=== PATIENT | female | born 1960 | race Caucasian/White ===

== ENCOUNTER 2018-10-28 16:51 | Emergency (ER) | payer SELFPAY ==
[~2018-10-28] VITALS: Wt 75.0 kg
--- NOTE | 2018-10-28 17:28 | ERD ---
ER Documentation Chief Complaint Chief Complaint R side abscess/lesion of forehead x 1 year HPI 58-year-old female patient with a history of panic attacks presents the ED complaining of a lesion on the right side of her forehead. Patient is afebrile and nontoxic-appearing. She reports that the lesion has been on her forehead for the last year, however today she presents to the ED due to it having purulent discharge. Denies any fever, chills, nausea, vomiting, diarrhea. Patient reports that she has had some swelling noted surrounding the skin lesion. Reports that she is never followed up with a production ski repairer. Denies any neck stiffness, vision problems. ROS All systems reviewed and are negative except as per history of present illness. Medications Home Meds Active Scripts Cephalexin* (Keflex*) 500 Mg Capsule, 500 MG PO QID for 7 Days, CAP Prov:HANSEL ALMARAZ PA-C 10/28/18 Sulfamethoxazole/Trimethoprim* (Bactrim Ds* Tablet) 1 Each Tablet, 1 TAB PO BID for 7 Days, #14 TAB Prov:HANSEL ALMARAZ PA-C 10/28/18 FmHx Family History: No diabetes, No coronary disease Physical Exam Vitals Vital Signs Date Temp Pulse Resp B/P (MAP) Pulse Ox O2 O2 Flow FiO2 Time Delivery Rate 10/28/18 98.5 86 20 164/83 99 16:58 (110) Physical Exam Const: Nho-ath-lehagoclc, well-nourished. In no acute distress. Head: Atraumatic, normocephalic. 2 cm spontaneously draining lesion on the right side of patient's forehead with no fluctuance noted. Eyes: Normal Conjunctiva without injection. No purulent discharge. PERRL. EOMI ENT: Normal external ear. Ear canal without erythema. Tympanic membrane pearly reynoso without effusion or bulging. Nasal canal clear with normal turbinates. Moist oropharynx without tonsillar exudates. Non-erythematous pharynx. Uvula midline. No drooling. No trismus. No angioedema noted. Neck: Full range of motion. No meningismus. No cervical lymphadenopathy. Resp: Clear to auscultation bilaterally. No wheezing, rhonchi, rales, or crackles. No accessory muscle use. No retractions. Cardio: Regular rate and rhythm. No murmurs, rubs or gallops. Abd: Soft, non tender, non distended. Normal bowel sounds. No palpable masses. No rebound tenderness. No guarding. Skin: No petechiae or rashes Back: No midline tenderness. No CVA tenderness. Ext: No cyanosis, or edema. Neur: Awake and alert. Psych: Normal Mood and Affect Procedures/MDM 58-year-old female patient with a past medical history of panic attacks presents ED complaining of right-sided lesion on the forehead that started about 1 year ago but has recently started to have purulent discharge. Patient is afebrile and nontoxic-appearing. Differentials include MRSA. Low suspicion for anaphylaxis, scabies, SJS/TEN, TSS, Lyme's Disease, syphilis, RMSF, shingles, disseminated gonorrhea chlamydia, DIC, TTP, ITP, erythema multiforme, sepsis, cellulitis, necrotizing fasciitis, gangrene, meningococcemia, allergic contact dermatitis, urticaria, eczema, tinea infection, or other emergent conditions. At this time patient was concerned about her visit not getting paid, and registration system with [facility] is currently down, therefore I told patient that I would give her prescription to cover for MRSA with Bactrim, Keflex and she was strictly to return to for any worsening symptoms or swelling as there is no work-up done at this time. At this time low suspicion for deep space infection, patient is appropriate for outpatient management. Diagnosis: Lesion of face Discharge medications: Keflex, Bactrim Follow up with primary care physician in 1-2 days. Strict instructions to follow-up with a production ski repairer for further evaluation and treatment instructed patient to return to the ED sooner for any worsening symptoms. Patient's questions were answered. Patient is hemodynamically stable. Patient understood and agreed with discharge plan. Patient discharged stable. Disclaimer: Inadvertent spelling and grammatical errors are likely due to EHR/dictation software use and do not reflect on the overall quality of patient care. Also, please note that the electronic time recorded on this note does not necessarily reflect the actual time of the patient encounter. Departure Diagnosis: Primary Impression: Skin lesion of face Condition: Stable MECHE SMITH PA-C Oct 28, 2018 17:28 AHNSEL ALMARAZ PA-C Oct 29, 2018 00:34
[2018-10-28] MEDS ORDERED: SULF1TAB31 PO (18:44)
[2018-10-28] MEDS ORDERED: CEPH-443 PO (18:44)
== END 2018-10-28 19:20 | disposition home or self-care (01) ==
LOC: FTE 16:51
DX: L98.9 Disorder of the skin and subcutaneous tissue, unspecified (principal)
CPT/HCPCS: 99283